=== PATIENT | female | born 1970 | race Caucasian/White ===

== ENCOUNTER 2017-11-03 21:08 | Emergency (ER) | payer OTHER ==
[2017-11-03] MEDS: NAPROXEN 500 MG TABLET PO (22:19)
== END 2017-11-03 23:01 | disposition home or self-care (01) ==
LOC: ER 21:08
DX: S90.31XA Contusion of right foot, initial encounter (principal); Z88.1 Allergy status to other antibiotic agents; Z88.2 Allergy status to sulfonamides; Z88.8 Allergy status to other drugs, medicaments and biological substances; X58.XXXA Exposure to other specified factors, initial encounter; Y93.89 Activity, other specified; Y99.8 Other external cause status; Y92.89 Other specified places as the place of occurrence of the external cause
CPT/HCPCS: 73630; 99284

== ENCOUNTER 2017-11-19 22:59 | Emergency (ER) | payer OTHER ==
[2017-11-19] MEDS: HYDROcodone/APAP 5/325MG 1 TAB TABLET PO (23:52)
[2017-11-19] MEDS: cefTRIAXone IM 1 GM VIAL IM (23:52)
== END 2017-11-20 00:17 | disposition home or self-care (01) ==
LOC: ER 11-20 00:17
DX: K04.7 Periapical abscess without sinus (principal); R51 Headache; Z88.1 Allergy status to other antibiotic agents; Z88.2 Allergy status to sulfonamides
CPT/HCPCS: 96372; 99283; J0696

== ENCOUNTER 2017-11-21 13:32 | Emergency (ER) | payer OTHER ==
[2017-11-21] MEDS: HYDROcodone/APAP 5/325MG 1 TAB TABLET PO (15:15)
== END 2017-11-21 15:25 | disposition home or self-care (01) ==
LOC: ER 15:25
DX: J01.00 Acute maxillary sinusitis, unspecified (principal); K02.9 Dental caries, unspecified; Z88.1 Allergy status to other antibiotic agents; Z88.2 Allergy status to sulfonamides
CPT/HCPCS: 70486; 99284-25